=== PATIENT | male | born 1985 | race Two or more races ===

== ENCOUNTER 2025-08-16 06:20 | Inpatient (IN) | payer OTHER ==
[~2025-08-16] VITALS: Ht 167.6 cm; Wt 82.9 kg
[2025-08-16] VITALS (7 sets, daily range): BP systolic 114–122; BP diastolic 62–83; PULSE 63–91; RESP 16–18; TEMP 97.3–98.6; O2SAT 95–97
--- NOTE | 2025-08-16 07:15 | DVH ---
CHEST RADIOGRAPH INDICATION: SURGERY TECHNIQUE: Single frontal view of the chest was obtained COMPARISON: None FINDINGS: Lines and Tubes: There is left infusion catheter with the tip terminating in the superior vena cava. There appears to be discontinuity in the proximal portion of the catheter. Lungs: No focal consolidation. Pleura: No effusion. No pneumothorax. Cardiomediastinal contours: Unremarkable Bones: No acute osseous abnormality. IMPRESSION: 1. No acute cardiopulmonary disease. 2. There appears to be discontinuity in the proximal portion of the left infusion catheter. Please correlate with appropriate function of the infusion catheter.
[2025-08-16 07:17] LABS: Hematocrit 42.2 % (41.0-53.0); Hemoglobin 14.9 g/dL (13.5-17.5); Mean Corpuscular Hemoglobin 28.0 pg (28.0-32.0); Mean Corpuscular Volume 79.2 fL (80.0-100.0); Nucleated Red Blood Cells % 0.6 %
[2025-08-16 07:28] LABS: Urine Protein, UAD Negative (Negative)
[2025-08-16] MEDS ORDERED: fentaNYL CITRATE 100 MCG/2 ML VL ONE (07:31)
[2025-08-16] MEDS ORDERED: MIDAZOLAM HCL 2MG/2ML 2ml VIAL (1mg/ml) ONE (07:31)
[2025-08-16] MEDS: ceFAZolin 2 GM/D5W50ml 50 ML IV ONE (07:32)
[2025-08-16 07:33] LABS: Albumin 4.3 g/dL (3.2-4.8); Alkaline Phosphatase 101 U/L (46-116); Anion Gap 7 (5-15); BUN/Creatinine Ratio 12.8 (10.0-20.0); Blood Urea Nitrogen 14 mg/dL (9-23); Calcium 8.9 mg/dL (8.7-10.4); Carbon Dioxide 28 mmol/L (20-31); Chloride 106 mmol/L (98-107); Potassium 4.0 mmol/L (3.5-5.1); Sodium 141 mmol/L (136-145); Total Protein 7.1 g/dL (5.7-8.2)
[2025-08-16 07:34] LABS: Bilirubin, Total 0.7 mg/dL (0.2-1.0); INR 1.02 (0.9-1.15); Partial Thromboplastin Time 29.9 SEC (24.5-34.5); Prothrombin Time 10.8 sec (9.3-11.8)
[2025-08-16 07:39] LABS: Alanine Aminotransferase 47 U/L (7-40); Glucose 125 mg/dL (74-106)
[2025-08-16] MEDS ORDERED: diphenhydrAMINE HCL 50 MG/1 ML VL ONE (07:48)
[2025-08-16] MEDS: LIDOCAINE W/ EPINEPHRINE 1% 20ML VIAL ONE (08:02)
[2025-08-16] MEDS: BUPIVACAINE 0.5% P/F INJ 10 ML VIAL ONE (08:02)
[2025-08-16] MEDS ORDERED: hydrALAZINE HCL 20 MG/ML VL IV PRN (09:45)
[2025-08-16] MEDS ORDERED: HYDROcodone-ACET 10/325MG TAB PO PRN (10:15)
--- NOTE | 2025-08-16 10:24 | DVHHP ---
ADMIT DATE: 08/16/2025 ATTENDING PHYSICIAN: Tj Marie MD CHIEF COMPLAINT: Removal of Port-A-Cath. HISTORY OF PRESENT ILLNESS: This is a 40-year-old male [employer] inmate who has a history of testicular cancer and has completed treatment of chemotherapy at [facility] and it has been requested that his Port-a-Cath be removed. He was taken into the OR by Dr. Sukhdev Norris today. Port-A-Cath was removed. The patient tolerated the procedure well. There were no untoward events. He is now being seen in the postoperative room, which I was asked to evaluate the patient and to admit for overnight observation. Currently, he has no complaints. Specifically, he denies any pain, cough, shortness of breath, nor fever. He has no episodes of bleeding. PAST MEDICAL HISTORY: He has hypertension, diabetes and testicular cancer. PAST SURGICAL HISTORY: He has had an orchiectomy. FAMILY HISTORY: Denies. SOCIAL HISTORY: He denies smoking. He has a history of heavy alcohol use for greater than 10 years. He denies any drug use. He is . He has 5 children. Has been incarcerated for years. REVIEW OF SYSTEMS: GENERAL: Denies any recent weight changes. HEENT: Denies any loss of consciousness or severe headache. CARDIOVASCULAR: Denies any chest pain or heart issues. RESPIRATORY: Denies cough, shortness of breath, or hemoptysis. GASTROINTESTINAL: Denies nausea, vomiting, diarrhea, or constipation. GENITOURINARY: As per HPI. NEUROLOGIC: He denies any focal deficits. PHYSICAL EXAMINATION: VITAL SIGNS: His temperature is 98.1 with a blood pressure of 153/75, heart rate of 64, respiratory rate of 13, O2 saturation is 95% on room air. HEENT: Normocephalic. Anicteric sclerae, pink conjunctivae. EOMI. NECK: Supple. No JVD, mass, or bruit. CHEST: Good equal excursion bilaterally. There is a left upper chest surgical wound with Steri-Strips. No active bleeding. No discharge. LUNGS: Good equal air exchange bilaterally. Clear to auscultation. ABDOMEN: Soft, nondistended, nontender. Bowel sounds are positive. No mass, guarding, or rebound. NEUROLOGIC: Awake, alert and oriented x4. He is without focal deficits. LABORATORY DATA: Chest x-ray is without any acute disease. UA was unremarkable. WBC is 4.8 with a hemoglobin of 14.9 and platelets of 127. Sodium 141, potassium of 4, BUN 14, creatinine 1.09, and glucose of 125. ALT is 47. PT and PTT are normal. ASSESSMENT: History of testicular cancer, status post chemotherapy with status post immediate Port-A-Cath removal. PLAN: Admit to med/surge. Condition is stable. Regular diet. IV hep-lock. We will use [place] for pain. Restart metformin for the diabetes and I will start the patient on amlodipine for the hypertension. MD ALLYSON Ventura/ TID: [id number] RECEIPT: [id number]
--- NOTE | 2025-08-16 10:27 | DVHOP ---
DATE OF SURGERY: 08/16/2025 PREOPERATIVE DIAGNOSIS: Left inguinal hernia. POSTOPERATIVE DIAGNOSIS: Left (direct/indirect inguinal hernia). SURGEON: Sukhdev Norris MD. SUPERINTENDENT GEOPHYSICAL LABORATORY: Michi Bailey NP. ANESTHESIA: General endotracheal, Dr. Bales. PROCEDURE: Repair of left inguinal hernia. DESCRIPTION OF PROCEDURE: Under general endotracheal anesthesia with the patient's skin prepped and draped and infiltrated with 0.25% Marcaine and 0.5% Xylocaine, an incision was made into the left groin over the visible palpable bulge in the left groin. The tissues divided down through the adipose tissue onto fibers of the external oblique aponeurosis. The external ring was palpated and dilated 2 fingerbreadths dilatation. Subsequently, the cord structures including the hernia were encircled with a Yao drain. The hernia sac was opened and digitally explored. It contained no intestinal or adipose tissue within the hernia sac. The hernia sac was then cleansed of cremasteric fibers. It was traced high up into the internal inguinal ring. It was twisted on itself, doubly ligated and excess peritoneum amputated and submitted. Subsequently, a direct portion of the hernia was identified and reduced into the internal ring. The tissues were held back with a baby Agueda and then subsequently, the floor of the hernia was repaired using nonabsorbable sutures through the conjoint tendon and the reflecting portion of Poupart's ligament. Subsequently, the patient's cord structures were returned into their normal anatomical position. The ilioinguinal nerve was visualized and had been protected throughout the procedure and returned back into its normal anatomical position. Cord structures and testicle returned into its normal anatomical position. The wound was approximated using Monocryl sutures, Dermabond glue, and Steri-Strips. The patient remained stable throughout the procedure, left the operating room following an accurate needle and sponge count. Family was thoroughly informed. MD GREG Trevino/BLANE TID: [id number] RECEIPT: [id number]
--- NOTE | 2025-08-16 10:53 | DVH ---
CHEST RADIOGRAPH INDICATION: S/P PORTAL CATH REMOVAL, VERIFICATION OF COMPLETE REMOVAL TECHNIQUE: Single frontal view of the chest was obtained COMPARISON: XY CHEST XRAY 1 VIEW on DOS: 08/16/25 FINDINGS: Lines and Tubes: None Lungs: Clear Pleura: No effusion. No pneumothorax. Cardiomediastinal contours: Unremarkable Bones: Unremarkable IMPRESSION: No acute disease.
[2025-08-16 13:28] LABS: Hepatitis B Surface Antigen Negative (Negative)
[2025-08-16 13:51] LABS: Hepatitis C Antibody Negative (Negative)
--- NOTE | 2025-08-16 13:54 | ECG ---
[facility] Test Date: 2025-08-16 Test Time: 07:03:51 Pat Name: JAYESH CASTILLO Department: Room: 0237 A Gender: M Managing Editor: CARISSA : 1985 Requested By: DOUG PIRES Order Number: [id number] Reading MD: Jamie Davis Measurements Intervals [place] Rate: 60 P: 18 CA: 190 QRS: -15 QRSD: 82 T: 10 QT: 400 QTc: 400 Interpretive Statements Normal sinus rhythm Inferior infarct , age undetermined Electronically Signed On 08-17-2025 18:28:04 PST by Jamie Davis Please click the below link to view image of tracing.
--- NOTE | 2025-08-16 21:47 | DVHOP ---
DATE OF SURGERY: 08/16/2025 PROCEDURE: Port-A-Cath removal. DESCRIPTION OF PROCEDURE: Under general endotracheal anesthesia with the patient's skin prepped and draped and infiltrated with 0.25% Marcaine, the incision was made over the visible palpable Port-A-Cath in the left subclavian region. Adipose tissues were divided down onto the palpable extent of the Port-A-Cath infusion chamber, which was then grasped with an Allis forceps. Sutures securing the Port-A-Cath were divided and the port was then removed. The port removal resulted in withdrawal of the port infusion chamber and approximately 3 cm of the catheter. The catheter had been severed most likely by scissoring between the first rib and the clavicle, which was not known prior to the operation. The catheter was then palpated and was within reach with a hemostat. I reached for the remaining catheter and with great difficulty, I was able to extract it. It was held very tightly by fibrous tissue. There was no resultant bleeding from the field. The wound was irrigated, approximated using Monocryl sutures, Dermabond glue, and Steri-Strips. The patient remained stable throughout the procedure, left the operating room following an accurate needle and sponge count. MD GREG Trevino/ TID: [id number] RECEIPT: [id number]
[2025-08-17 05:00] VITALS: BP 125/67; PULSE 56; RESP 18; TEMP 97.9; O2SAT 98
[2025-08-17 08:10] VITALS: RESP 17
[2025-08-17 08:37] VITALS: BP 120/80; PULSE 76; RESP 18; TEMP 97.7; O2SAT 98
[2025-08-17] MEDS: ENOXAPARIN SOD 40 MG/0.4 ML SYRINGE SC SCH (09:50)
--- NOTE | 2025-08-17 11:39 | DVHPN2 ---
Subjective Date Seen: Aug 17, 2025 Post op day Post op day: 1 Patient reports: No new complaints, Feels better Nursing reports: No new complaints General: Normal HNT: Normal Cardiovascular: Normal Respiratory: Normal Gastrointestinal: Normal Genitourinary: Normal Musculoskeletal: Normal Neurological: Normal Objective Vitals Vital Sign Date Time Temp Pulse Resp B/P (MAP) Pulse Ox O2 Delivery O2 Flow Rate FiO2 08/17/25 09:50 120/80 08/17/25 08:37 97.7 76 18 98 97.7 08/17/25 08:10 Room Air* 0 21 Total Intake and Output 08/16/25 08/16/25 08/17/25 15:00 23:00 07:00 Intake Total 50 ml 850 ml 500 ml Output Total 1000 ml Balance -950 ml 850 ml 500 ml Medications Current Medications Medications Dose Ordered Sig/Jak Route Start Time Stop Time Status Last Admin Dose Admin Hydralazine HCl 5 mg Q6HP PRN IV 08/16/25 09:45 Hold Acetaminophen/ Hydrocodone Bitart 1 tab Q4HP PRN PO 08/16/25 10:15 Metformin HCl 1,000 mg DAILY PO 08/17/25 10:00 08/17/25 09:50 1,000 MG Amlodipine Besylate 5 mg DAILY PO 08/17/25 10:00 08/17/25 09:50 5 MG Clonidine HCl 0.2 mg Q6HP PRN PO 08/16/25 10:15 Enoxaparin Sodium 40 mg DAILY SC 08/17/25 10:00 08/17/25 09:50 40 MG General: Normal Head/Eyes: Normal ENT: Normal Neck: Normal Lungs: Normal, Normal inspection Cardiovascular: Normal, Regular rate and rhythm Abdominal: Normal Musculoskeletal: Normal Extremities: Normal Skin: Normal Neurological: Normal Labs and Microbiology Laboratory Tests 08/16/25 06:49 Test 08/16/25 06:49 Range/Units Serum Glucose 125 H 74-106 mg/dL Ass/Plan Assessment/Plan no new complaints wound clean dry and intact ok to discharge patient may shower on Thursday notes reviewed Prognosis: Excellent Plan discussed with patient , Dr. Norris Visit Coding Surgery Date of Service if different f: Aug 17, 2025 Billing Provider: DOUG NORRIS MD Surgery Visit Codes: [id number] INP/OBS CARE(HIGH) ALEK BAGLEY CLAMMER Aug 17, 2025 11:39
[2025-08-17 12:44] VITALS: BP 116/77; PULSE 68; RESP 16; TEMP 98; O2SAT 96
--- NOTE | 2025-08-17 17:07 | DVHDS ---
ATTENDING PHYSICIAN: Tj Marie MD. HOSPITAL COURSE: The patient was taken to medical floor. He was started on a regular diet, given analgesics and DVT prophylaxis. He was observed overnight. No untoward events noted. On examination today, no evidence of bleeding to the site. There is mild tenderness but no complaint of pain. He denies any shortness of breath or fever. He has now been discharged back to the care of the [facility] authorities in good and stable condition. DISCHARGE DIAGNOSES: * Status post Port-A-Cath removal. * History of vesicular CA. DISCHARGE MEDICATIONS: He is instructed to resume prehospitalization medications and follow with [facility] p[facility]. Tj Marie MD JV/UDD TID: [id number] RECEIPT: [id number]
== END 2025-08-17 14:00 | DRG 352 ==
LOC: EEVIPCON → SUR 06:20 → OVERFLOW 08:54 → EAST 10:57
PROVIDERS: ADMIT Surgery; ATTEND Surgery
PROC: 0JPT0WZ Removal of Totally Implantable Vascular Access Device from Trunk Subcutaneous Tissue and Fascia, Open Approach (ICD-10-PCS; 2025-08-16)
PROC: 02PYX3Z Removal of Infusion Device from Great Vessel, External Approach (ICD-10-PCS; 2025-08-16)
PROC: 0YQ60ZZ Repair Left Inguinal Region, Open Approach (ICD-10-PCS; principal; 2025-08-16 07:33)
DX: K40.90 Unilateral inguinal hernia, without obstruction or gangrene, not specified as recurrent (principal); E11.9 Type 2 diabetes mellitus without complications; I10 Essential (primary) hypertension; Z92.21 Personal history of antineoplastic chemotherapy; Z85.47 Personal history of malignant neoplasm of testis
CPT/HCPCS: 36415; 71045; 80053; 81001; 82962; 85025; 85610; 85730; 86803; 87340; 93005; G0378; J1100; J2250; J3490